=== PATIENT | male | born 1990 | race Native Hawaiian/Other Pacific Islander ===

== ENCOUNTER 2020-09-05 15:34 | Outpatient (CLI) | payer BC | END 2020-09-05 22:09 | disposition home or self-care (01) | LOC: RAD 15:34 | PROVIDERS: ATTEND Nurse Practitioner Family | DX: M54.5 Low back pain (principal); M54.6 Pain in thoracic spine ==

== ENCOUNTER 2020-09-20 10:13 | Outpatient (CLI) | payer BC | END 2020-09-20 23:02 | disposition home or self-care (01) | LOC: MRI 10:13 | PROVIDERS: ATTEND Nurse Practitioner Family | DX: M54.5 Low back pain (principal); M54.6 Pain in thoracic spine; M62.838 Other muscle spasm; M25.561 Pain in right knee; M54.16 Radiculopathy, lumbar region ==

== ENCOUNTER 2023-01-02 12:43 | Outpatient (CLI) | payer BC | END 2023-01-02 19:39 | disposition home or self-care (01) | LOC: US 12:43 | PROVIDERS: ATTEND Nurse Practitioner Family | DX: N46.9 Male infertility, unspecified (principal); N46.01 Organic azoospermia; N50.812 Left testicular pain | CPT/HCPCS: 36415; 82533; 82670; 83001; 83002; 83003; 83727; 84146; 84305; 84439; 84443; 84481 ==

== ENCOUNTER 2023-01-20 18:19 | Outpatient (CLI) | payer BC ==
[2023-01-20 19:36] LABS: PLATELET COUNT 209 K/uL (142-355)
== END 2023-01-20 19:20 | disposition home or self-care (01) ==
LOC: LABW 18:19
PROVIDERS: ATTEND Registered Nurse
DX: Z00.00 Encounter for general adult medical examination without abnormal findings (principal)
CPT/HCPCS: 36415; 80061; 85027